=== PATIENT | male | born 1960 ===

== ENCOUNTER 2020-07-21 09:45 | Inpatient (IN) | payer OTHER ==
[~2020-07-21] VITALS: Ht 177.8 cm; Wt 102.5 kg
[2020-07-30] MEDS ORDERED: OXYC1TAB9 PO (07:51)
[2020-07-30] MEDS ORDERED: XARELTO10 MG PO (07:51)
[2020-07-30] MEDS ORDERED: BACTRIM 400-801 EACH PO (07:51)
[2020-07-30] MEDS ORDERED: INTEGRA PLUS C1 EACH PO (07:51)
== END 2020-08-01 17:00 | DRG 470 ==
LOC: SURH 07-28 09:45 → O/R 07-28 10:30 → SURH 07-28 11:00
PROVIDERS: ADMIT Orthopaedic Surgery Sports Medicine; ATTEND Orthopaedic Surgery Sports Medicine
PROC: 0SR90JZ Replacement of Right Hip Joint with Synthetic Substitute, Open Approach (ICD-10-PCS; principal; 2020-07-28 11:00)
DX: M87.051 Idiopathic aseptic necrosis of right femur (principal); I10 Essential (primary) hypertension